=== PATIENT | female | born 1990 | race Caucasian/White ===

== ENCOUNTER 2017-02-11 08:49 | Outpatient (CLI) | payer OTHER ==
--- NOTE | 2017-02-11 10:34 | DIAGNOSTIC IMAGING REPORT ---
PROCEDURE: US COMPLETE PELVIC W/TRANSVAG INDICATION: POLYCYSTIC OVARIAN SYNDROME TECHNIQUE: Transabdominal and endovaginal cadena scale and color Doppler sonographic images of the female pelvis were obtained. COMPARISON: None. FINDINGS: TRANSABDOMINAL SCANS: No pelvic mass or free fluid. TRANSVAGINAL SCANS: Retroverted uterus measures 5.7 x 3.3 x 6.0 cm. Nabothian cysts are present. Normal endometrium measures 7.1 mm. Right ovary measures 3.6 x 2.2 x 3.3 cm (13.3 ml) and left ovary measures 3.1 x 2.3 x 2.5 cm (9.1 ml). Ovaries have a rounded appearance with mildly echogenic stroma and multiple small follicles. There is normal vascular flow to both ovaries. There is no free fluid the cul-de-sac. IMPRESSION: 1. Retroverted uterus 2. Findings suggestive of polycystic ovaries. Correlate clinically.
== END 2017-02-11 23:00 ==
LOC: US SRH 08:49 → LAB SRH 08:49 → US SRH 09:00
DX: E28.2 Polycystic ovarian syndrome (principal)
CPT/HCPCS: 90074; 90648; 90904; 90943; 91023; 93075; 93140

== ENCOUNTER 2017-03-13 18:00 | Emergency (ER) | payer OTHER ==
--- NOTE | 2017-03-13 19:33 | ED CLINICAL REPORT ---
Clinical Report - Physicians/Mid Levels [facility] [address] [place] [address] 03/13/2017 18:00 Patient: MINI TAVARES Time Seen: 18:18. Arrived- By private vehicle. Historian- patient. HISTORY OF PRESENT ILLNESS Chief Complaint: ABDOMINAL PAIN. It is described as "pain" and squeezing" and it is described as radiating to the upper back. Is still present. The patient has had nausea. No vomiting or diarrhea. Similar symptoms previously: Milder. Recent medical care: Not recently seen/assessed. REVIEW OF SYSTEMS Last normal menstrual period was 4 weeks ago. No constipation, black stools, difficulty with urination, fever or chest pain. No chills. Denies current . PAST HISTORY See nurses notes. obesity w/ recent gain +for significant GERD, not responsive to prilosec Mom had hx of hiatal hernia. No history of gallstones, hypertension or diabetes mellitus. Has not had urinary calculi. 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 SOCIAL HISTORY Light tobacco smoker (cigarette)- less than 1/2 a pack per day. Occasional alcohol use. No drug use. ADDITIONAL NOTES The nursing notes have been reviewed. PHYSICAL EXAM Vital Signs: 03/13/2017 18:08 BP: 116/79. HR: 95. RR: 17. O2 saturation: 99%. Temp: 98.3 F. Pain level now: 4/10. Have been reviewed and appear to be correct. Appearance: Alert. Oriented X3. No acute distress. Eyes: Pupils equal, round and reactive to light. Eyes normal inspection. ENT: Ears normal. Neck: Normal inspection. Neck supple. CVS: Normal heart rate and rhythm. Heart sounds normal. Respiratory: No respiratory distress. Breath sounds normal. Abdomen: Soft. Severe tenderness in the upper abdomen, right upper quadrant, epigastric area and left upper quadrant. No guarding or rebound tenderness. Obese. No rebound tenderness, distention, mass present or guarding. The bowel sounds are not abnormal. Skin: Skin warm and dry. Normal skin color. Normal skin turgor. Neuro: Oriented X 3. LABS, X-RAYS, AND EKG Laboratory Tests: Laboratory tests have been ordered, with results reviewed and considered in the medical decision making process. Urine: (PIA: 03/13/2017 18:32) ( [facility] 03/13/2017 19:01) Final results Test Result Flag Units (Reference) URINE NEGATIVE CBC w Diff: (PIA: 03/13/2017 18:40) ( [facility] 03/13/2017 18:54) Final results Test Result Flag Units (Reference) WHITE BLOOD COUNT 7.5 K/uL (4.5-11.5) RED BLOOD COUNT 4.71 M/uL (4.00-5.20) HEMOGLOBIN 11.9 L gm/dL (12.0-16.0) HEMATOCRIT 36.1 % (36.0-46.0) MEAN CELL VOLUME 77 L fL (80-100) MEAN CORPUSCULAR HGB 25 L pg (26-34) MEAN CORPUSCULAR HGB CONC 33 g/dL (31-37) RED CELL DISTRIBUTION WIDTH 15.3 H % (11.6-14.8) PLATELET COUNT 326 K/uL (150-400) NEUTROPHIL % 57.7 % (50-75) LYMPH % 31.4 % (25-40) MONO % 8.7 % (3-14) EOSINOPHIL % 1.4 % (0-4) BASOPHIL % 0.8 % (0-2) CMP: (PIA: 03/13/2017 18:40) ( [facility] 03/13/2017 19:14) Final results Test Result Flag Units (Reference) GLUCOSE 87 mg/dL (70-110) BUN 15 mg/dL (7-18) CREATININE 1.0 mg/dL (0.6-1.3) Estimated GFR >60 mL/min Estimated GFR- >60 mL/min Note: Persistent reduction over 3 months in eGFR<60 mL/min/1.73 m2 defines CKD. Patients with eGFR values>=60 mL/min/1.73 m2 may also have CKD if evidence ofpersistent proteinuria. Additional information may be foundat www.kidney.org. SODIUM 141 mmol/L (136-145) POTASSIUM 3.9 mmol/L (3.5-5.1) CHLORIDE 104 mmol/L (98-107) CARBON DIOXIDE 26 mmol/L (21-32) CALCIUM 9.2 mg/dL (8.5-10.1) TOTAL PROTEIN 8.0 g/dL (6.4-8.2) ALBUMIN 3.5 g/dL (3.3-5.0) BILIRUBIN, TOTAL 0.3 mg/dL (0.0-1.0) ALKALINE PHOSPHATASE 67 U/L (46-116) AST (SGOT) 55 H U/L (15-37) ALT (SGPT) 104 H U/L (12-78) LIPASE 142 U/L (73-393) AMYLASE 40 U/L (25-115) . PROGRESS AND PROCEDURES Course of Care: 18:47 03/13/17. Discussed possible diagnoses and eval to be done tonight-GI cocktail, labs. Followup w/ PCP essential. Pt and mom verbalize understanding. All findings reviewed. Did get relief w/ GI cocktail-but can feel painless reflux happening. Patient is stable. Patient and mother counseled in person regarding the patient's condition, test results, diagnosis and need for follow-up. Disposition: Discharged. Condition: stable. CLINICAL IMPRESSION Gastroesophageal reflux disease with esophagitis. Abnormal serum liver function test. Chronic anemia. INSTRUCTIONS Drink plenty of fluids. Avoid alcohol and NSAIDS. Examples of NSAIDS include aspirin, ibuprofen (Advil) and naproxen (Aleve). Avoid fatty and spicy foods. (You need a liver ultrasound to follow up on your lab values-suspect fatty liver. Iron supplement suggested for anemia: ferrous sulfate 325mg daily My FitnessPal and [employer] are good resources for food journal. Work on restricting the "white" stuff Do not hesitate to return if symptoms are worsening. OTC Nexium if issues w/ getting protonix covered). Warnings: Further evaluation is necessary. GENERAL WARNINGS: Return or contact your physician immediately if your condition worsens or changes unexpectedly, if not improving as expected, or if other problems arise. Prescription Medications: Carafate 1 gm tablets: take 1 orally four times daily (30 minutes before meals and at bedtime) for 10 days. Dispense forty (40). No refills. Protonix 40 mg tablets: take 1 tablet orally every day for 4 weeks. Dispense twenty-eight (28). No refill. Follow-up: Follow up with your doctor in about one week even if well. Understanding of the discharge instructions verbalized by patient and family. (Electronically signed by Amanda Harmon A.R.N.P. 03/13/2017 20:36)
--- NOTE | 2017-03-13 19:33 | ED NURSING NOTES ---
Clinical Report - Nurses [facility] [place] [place] [address] 03/13/2017 18:00 Patient: MINI TAVARES TRIAGE Triage time 18:08 Mar 13 2017. Chief Complaint: ABDOMINAL PAIN and (pt c/o upper abd pain describes as "tension or squeezing" pain is worse after a meal). Alert. No acute distress. SEPSIS SCREEN: Sepsis Screen. Negative (no infection suspected/documented). --18:13 Blanco Damon R.N. 18:08 03/13/17. BP: 116/79. HR: 95. RR: 17. O2 saturation: 99%. Temp: 98.3 F. Pain level now: 01/31. --18:13 Blanco Damon R.N. Weight: 105.6 kg stated. Height/Length: 64 inches Per Patient. BMI: 40. --18:11 Blanco Damon R.N. Medications None. --18:10 Blanco Damon R.N. Allergies Tramadol. --18:10 Blanco Damon R.N. History Arrived by private vehicle. Historian: patient. Accompanied by family. The patient has had abdominal pain. Treatment RESIDENTIAL SUPPORT WORKER: None. ("I was going to take tylenol last night but I couldn't find any"). PAST MEDICAL HX: Immunizations: up-to-date. Last normal menstrual period- 1 months ago. SOCIAL HX: Light tobacco smoker- less than 1/2 a pack per day. Occasional alcohol use; consumes liquor. No drug use. No infectious disease exposure. No known contact with a sick individual. ABUSE ASSESSMENT: No report of abuse. SELF HARM ASSESSMENT: A self harm assessment was performed. The patient answered "no" to the question "Do you have thoughts of harming or killing yourself?". FALL RISK ASSESSMENT: Fall risk assessment completed. No fall risk identified. NUTRITIONAL RISK ASSESSMENT: The nutritional risk assessment revealed no deficiencies. FUNCTIONAL ASSESSMENT: Functional assessment: no impairments noted. LEARNING NEEDS ASSESSMENT: The learning needs assessment revealed no barriers. SKIN INTEGRITY ASSESSMENT: Skin integrity risk assessment completed. No skin integrity risk identified. --18:13 Blanco Damon R.N. PROBLEMS: Chest Wall Pain. Atypical Chest Pain. Near Syncope. Knee Injury. Pharyngitis. Broken bone. --18:11 Blanco Damon R.N. Pelvic Inflammatory Disease [RuleOut]. --18:11 Blanco Damon R.N. 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 --18:11 Blanco Damon R.N. Interventions ID and allergy band on patient. --18:13 Blnaco Damon R.N. PHYSICAL ASSESSMENT Ambulatory to room. Patient gowned. GENERAL / NEURO / PSYCH: Alert. Oriented X 4. Appears in no acute distress. HEENT: Mucous membranes are pink. RESPIRATORY: Respirations not labored. Breath sounds within normal limits. CVS: Capillary refill less than 2 seconds. GI / : Abdomen soft and nontender. Bowel sounds within normal limits. SKIN: Skin is warm and dry. --18:13 Blanco Damon R.N. NURSING PROGRESS NOTES Patient gowned. Reassurance given. Patient identifiers checked. Call light placed in reach. Side rails up x 1. Bed placed in lowest position. Brakes of bed on. Patient ready for evaluation- chart flagged. Patient waiting for evaluation. --18:15 Blanco Damon R.N. 18:41 03/13/2017 GI COCKTAIL WHITE (Simethicone) PO Oral Suspension 30 mL given. Allergies verified and confirmed 5 rights. --18:46 Blanco Damon R.N. 19:33 03/13/2017 GI COCKTAIL WHITE PO Response: no adverse reaction pain is improving. Symptoms have improved the patient feels better. --19:43 Blanco Damon R.N. DISPOSITION / DISCHARGE Condition at departure: improved. No learning barriers present. Discharge instructions provided and reviewed with the patient. Reviewed medication(s) side effects, dosing and course information. Prescription(s) given to the patient. Patient verbalized understanding. Written instructions provided in French. The patient was discharged by the nurse practitioner. She was discharged home and accompanied by family. She left the Emergency Department ambulatory and via private vehicle. Family member driving. --19:42 Blanco Damon R.N. 19:41 03/13/17. BP: 115/71. HR: 87. RR: 17. O2 saturation: 99%. Temp: 98.1 F. Pain level now: 12/03. --19:42 Blanco Damon R.N. Locked/Released at 03/13/2017 19:44 by Blanco Damon R.N.
--- NOTE | 2017-03-13 19:33 | ED NURSING NOTES ---
Clinical Report - Nurses [facility] [place] [address] 03/13/2017 18:00 Patient: MINI TAVARES TRIAGE Triage time 18:08 Mar 13 2017. Chief Complaint: ABDOMINAL PAIN and (pt c/o upper abd pain describes as "tension or squeezing" pain is worse after a meal). Alert. No acute distress. SEPSIS SCREEN: Sepsis Screen. Negative (no infection suspected/documented). --18:13 Blanco Damon R.N. 18:08 03/13/17. BP: 116/79. HR: 95. RR: 17. O2 saturation: 99%. Temp: 98.3 F. Pain level now: 01/31. --18:13 Blanco Damon R.N. Weight: 105.6 kg stated. Height/Length: 64 inches Per Patient. BMI: 40. --18:11 Blanco Damon R.N. Medications None. --18:10 Blanco Damon R.N. Allergies Tramadol. --18:10 Blanco Damon R.N. History Arrived by private vehicle. Historian: patient. Accompanied by family. The patient has had abdominal pain. Treatment RODBUSTER: None. ("I was going to take tylenol last night but I couldn't find any"). PAST MEDICAL HX: Immunizations: up-to-date. Last normal menstrual period- 1 months ago. SOCIAL HX: Light tobacco smoker- less than 1/2 a pack per day. Occasional alcohol use; consumes liquor. No drug use. No infectious disease exposure. No known contact with a sick individual. ABUSE ASSESSMENT: No report of abuse. SELF HARM ASSESSMENT: A self harm assessment was performed. The patient answered "no" to the question "Do you have thoughts of harming or killing yourself?". FALL RISK ASSESSMENT: Fall risk assessment completed. No fall risk identified. NUTRITIONAL RISK ASSESSMENT: The nutritional risk assessment revealed no deficiencies. FUNCTIONAL ASSESSMENT: Functional assessment: no impairments noted. LEARNING NEEDS ASSESSMENT: The learning needs assessment revealed no barriers. SKIN INTEGRITY ASSESSMENT: Skin integrity risk assessment completed. No skin integrity risk identified. --18:13 Blanco Damon R.N. PROBLEMS: Chest Wall Pain. Atypical Chest Pain. Near Syncope. Knee Injury. Pharyngitis. Broken bone. --18:11 Blanco Damon R.N. Pelvic Inflammatory Disease [RuleOut]. --18:11 Blanco Damon R.N. 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 --18:11 Blanco Damon R.N. Interventions ID and allergy band on patient. --18:13 Blanco Damon R.N. PHYSICAL ASSESSMENT Ambulatory to room. Patient gowned. GENERAL / NEURO / PSYCH: Alert. Oriented X 4. Appears in no acute distress. HEENT: Mucous membranes are pink. RESPIRATORY: Respirations not labored. Breath sounds within normal limits. CVS: Capillary refill less than 2 seconds. GI / : Abdomen soft and nontender. Bowel sounds within normal limits. SKIN: Skin is warm and dry. --18:13 Blanco Damon R.N. NURSING PROGRESS NOTES Patient gowned. Reassurance given. Patient identifiers checked. Call light placed in reach. Side rails up x 1. Bed placed in lowest position. Brakes of bed on. Patient ready for evaluation- chart flagged. Patient waiting for evaluation. --18:15 Blanco Damon R.N. 18:41 03/13/2017 GI COCKTAIL WHITE (Simethicone) PO Oral Suspension 30 mL given. Allergies verified and confirmed 5 rights. --18:46 Blanco Damon R.N. 19:33 03/13/2017 GI COCKTAIL WHITE PO Response: no adverse reaction pain is improving. Symptoms have improved the patient feels better. --19:43 Blanco Damon R.N. DISPOSITION / DISCHARGE Condition at departure: improved. No learning barriers present. Discharge instructions provided and reviewed with the patient. Reviewed medication(s) side effects, dosing and course information. Prescription(s) given to the patient. Patient verbalized understanding. Written instructions provided in Slovenian. The patient was discharged by the nurse practitioner. She was discharged home and accompanied by family. She left the Emergency Department ambulatory and via private vehicle. Family member driving. --19:42 Blanco Damon R.N. 19:41 03/13/17. BP: 115/71. HR: 87. RR: 17. O2 saturation: 99%. Temp: 98.1 F. Pain level now: 12/03. --19:42 Blanco Damon R.N. Locked/Released at 03/13/2017 19:44 by Blanco Damon R.N.
--- NOTE | 2017-03-13 19:33 | ED ORDER SUMMARY ---
..... Patient: MINI TAVARES OrderSheet [facility] VisitID: [id number] [place] [address] 26y, F Registration Date/Time: 03/13/2017 ORDER SHEET Weight: 105.6 kg (stated) Allergies: Tramadol GENERAL ORDERS: CBC w Diff Urgent (18:33 03/13/2017 SThom A.R.N.P.) (Ack 18:35 TBergley) (18:40 TBergley) CMP Urgent (18:33 03/13/2017 SThom A.R.N.P.) (Ack 18:35 TBergley) (18:40 TBergley) Amylase Urgent (18:33 03/13/2017 SThom A.R.N.P.) (Ack 18:35 TBergley) (18:40 TBergley) Lipase Urgent (18:33 03/13/2017 SThom A.R.N.P.) (Ack 18:35 TBergley) (18:40 TBergley) Urine Urgent (18:34 03/13/2017 SThom A.R.N.P.) (Ack 18:35 TBergley) (18:46 KPage-Kuchan R.N.) MEDICATION ORDERS: GI Cocktail WHITE PO 30 mL with Lidocaine Viscous Mouth/Throat 15 mL, Maalox Plus Oral 15 mL (NOW) (18:33 03/13/2017 SThom A.R.N.P.) (18:46 KPaadan-Kuchan R.N.) IV FLUIDS: ORDER SHEET NOTES: [Electronically signed by Blanco Damon R.N. (19:44 03/13/2017)] [Electronically signed by Amanda Harmon A.R.N.P. (20:36 03/13/2017)] [Electronically locked/signed by Blanco Damon R.N. (19:44 03/13/2017)]
--- NOTE | 2017-03-13 19:33 | ED ORDER SUMMARY ---
..... Patient: MINI TAVARES OrderSheet [facility] VisitID: [id number] [place] [address] 26y, F Registration Date/Time: 03/13/2017 ORDER SHEET Weight: 105.6 kg (stated) Allergies: Tramadol GENERAL ORDERS: CBC w Diff Urgent (18:33 03/13/2017 SThom A.R.N.P.) (Ack 18:35 TBergley) (18:40 TBergley) CMP Urgent (18:33 03/13/2017 SThom A.R.N.P.) (Ack 18:35 TBergley) (18:40 TBergley) Amylase Urgent (18:33 03/13/2017 SThom A.R.N.P.) (Ack 18:35 TBergley) (18:40 TBergley) Lipase Urgent (18:33 03/13/2017 SThom A.R.N.P.) (Ack 18:35 TBergley) (18:40 TBergley) Urine Urgent (18:34 03/13/2017 SThom A.R.N.P.) (Ack 18:35 TBergley) (18:46 KPage-Kuchan R.N.) MEDICATION ORDERS: GI Cocktail WHITE PO 30 mL with Lidocaine Viscous Mouth/Throat 15 mL, Maalox Plus Oral 15 mL (NOW) (18:33 03/13/2017 SThom A.R.N.P.) (18:46 KPaadan-Kuchan R.N.) IV FLUIDS: ORDER SHEET NOTES: [Electronically signed by Blanco Damon R.N. (19:44 03/13/2017)] [Electronically signed by Amanda Harmon A.R.N.P. (20:36 03/13/2017)] [Electronically locked/signed by Blanco Damon R.N. (19:44 03/13/2017)]
--- NOTE | 2017-03-13 20:37 | ED MAR SUMMARY ---
..... Medication Administration Record [facility] [address] [place] [address] Patient: MINI TAVARES Visit ID: [id number] 26y, F Weight: 105.6 kg Height/Length: 64 in BMI: 40 ALLERGIES: Tramadol Given 18:41 03/13/2017 Blanco Damon RHebertNHebert Medication Administered: GI COCKTAIL WHITE [PO] (SIMETHICONE), Dose: 30 mL Oral Suspension PO. Medication Ordered: GI Cocktail WHITE PO 30 mL with Lidocaine Viscous Mouth/Throat 15 mL, Maalox Plus Oral 15 mL (NOW).
--- NOTE | 2017-03-13 20:37 | ED MAR SUMMARY ---
..... Medication Administration Record [facility] [address] [place] [address] Patient: MINI TAVARES Visit ID: [id number] 26y, F Weight: 105.6 kg Height/Length: 64 in BMI: 40 ALLERGIES: Tramadol Given 18:41 03/13/2017 Blanco Damon RHebertNHebert Medication Administered: GI COCKTAIL WHITE [PO] (SIMETHICONE), Dose: 30 mL Oral Suspension PO. Medication Ordered: GI Cocktail WHITE PO 30 mL with Lidocaine Viscous Mouth/Throat 15 mL, Maalox Plus Oral 15 mL (NOW).
--- NOTE | 2017-03-13 20:37 | ED MED RECONCILIATION SUMMARY ---
Patient: MINI TAVARES Medication Reconciliation Report [facility] VisitID: [id number] [address] [place] [address] 26y, F Registration Date/Time: 03/13/2017 Weight: 105.6 kg Height/Length: 64 in. BMI: 40.0 ALLERGIES: Tramadol The patient's Home Medications are listed below: NONE. The source(s) of the original Home Medication information: Not obtained. The following Medications were given to the patient in the Emergency Department: GI COCKTAIL WHITE [PO] PO 30 mL, administered: 03/13/2017 6:41:00 PM The following Medications were prescribed to the patient: Carafate 1 gm tablets: take 1 orally four times daily (30 minutes before meals and at bedtime) for 10 days. Dispense forty (40). No refills. -- Amanda Harmon A.R.N.P. Protonix 40 mg tablets: take 1 tablet orally every day for 4 weeks. Dispense twenty-eight (28). No refill. -- Amanda Harmon A.R.N.P.
--- NOTE | 2017-03-13 20:37 | ED DISCHARGE INSTRUCTIONS ---
Patient: MINI TAVARES General Instructions [facility] VisitID: [id number] [place] [address] 26y, F Registration Date/Time: 03/13/2017 Gastroesophageal reflux disease with esophagitis. Abnormal serum liver function test. Chronic anemia. INSTRUCTIONS Drink plenty of fluids. Avoid alcohol and NSAIDS. Examples of NSAIDS include aspirin, ibuprofen (Advil) and naproxen (Aleve). Avoid fatty and spicy foods. (You need a liver ultrasound to follow up on your lab values-suspect fatty liver. Iron supplement suggested for anemia: ferrous sulfate 325mg daily [employer] and [employer] are good resources for food journal. Work on restricting the "white" stuff Do not hesitate to return if symptoms are worsening. OTC Nexium if issues w/ getting protonix covered). Warnings: Further evaluation is necessary. GENERAL WARNINGS: Return or contact your physician immediately if your condition worsens or changes unexpectedly, if not improving as expected, or if other problems arise. Prescription Medications: Carafate 1 gm tablets: take 1 orally four times daily (30 minutes before meals and at bedtime) for 10 days. Dispense forty (40). No refills. Protonix 40 mg tablets: take 1 tablet orally every day for 4 weeks. Dispense twenty-eight (28). No refill. Follow-up: Follow up with your doctor in about one week even if well. Understanding of the discharge instructions verbalized by patient and family. ADDITIONAL INFORMATION GERD (Adult) The esophagus is a tube that carries food from the mouth to the stomach. A valve at the lower end of the esophagus prevents stomach acid from flowing upward. If this valve does not work properly, acid from the stomach enters the esophagus. If this occurs over and over, the acid will injure the lining of the esophagus. This condition is called GERD (gastroesophageal reflux disease) or acid reflux. When stomach acid flows upward into the esophagus, it causes burning, pressure or sharp pain in the upper abdomen or mid to lower chest. The pain can spread to the neck, back, or shoulder, similar to heart pain (angina). There may be belching, an acid taste in the back of the throat, chronic cough, or sore throat or hoarseness. GERD symptoms often occur during the day after a big meal, but it can also occur at night when lying down. Smoking,as well as drinking alcohol, increases the risk of GERD. GERD is a chronic condition. Once it begins, it is often lifelong. Treatment includes changes in eating habits and the use of acid destin medications to decrease the amount of acid in the stomach. Symptoms often improve with treatment, but if treatment is stopped, the symptoms usually return after a few months. So most persons with GERD will need to continue treatment. Home Care: Take the prescribed acid destin medication for the full course of treatment even if you begin to feel better sooner. This medication can take up to several days to fully control your symptoms. If you cant afford the prescribed medication, you can try [id number] acid blockers, such as Pepcid AC, Tagamet, Zantac, or Aciphex. If these do not relieve your symptoms, a stronger acid-destin can be tried, such as Prilosec OTC. You can use antacids, such as Tums, Rolaids, Mylanta, or Maalox, for pain. This will be useful the first few days after starting acid blockers when the blockers havent started working yet. Follow the directions on the label. Liquid antacids may work better than tablets. Note that antacids can interfere with absorption of certain medications. Specifically, do not take Tagamet (cimetidine), Zantac (ranitidine), or Carafate (sucralfate) within 1 hour of taking an antacid. Talk with your pharmacist if you have any questions. Limit or avoid fatty, fried, and spicy foods, as well as coffee, chocolate, mint, and foods with high acid content such as tomatoes and citrus fruit and juices (orange, grapefruit, lemon). Avoid alcohol and smoking. Dont eat large meals, especially at night. Frequent, smaller meals are best. Do not lie down right after eating. And dont eat anything 3 hours before going to bed. If you are overweight, losing weight will reduce symptoms. Women should not wear corsets or girdles because this increases pressure on the stomach and worsens reflux. If your symptoms occur during sleep, use a foam wedge to elevate your upper body (not just your head.) Or, place 4" blocks under the head of your bed. Follow Up with your doctor or as advised by our staff. Further testing may be needed. If you do not begin to improve over the next 4 days, contact your doctor. If you had an x-ray, CT scan, or ECG (electrocardiogram), it will be reviewed by a specialist. Youll be notified of any new findings that affect your care. Get Prompt Medical Attention if any of the following occur: Stomach pain gets worse or moves to the lower right abdomen (appendix area) Chest pain appears or gets worse, or spreads to the back, neck, shoulder, or arm Frequent vomiting (cant keep down liquids) Blood in the stool or vomit (red or black in color) Feeling weak or dizzy, fainting, or trouble breathing Fever of 100.4F (38C) or higher, or as directed by your healthcare provider Anemia [Type Not Specified, Adult] Red blood cells carry oxygen to the tissues of the body. Anemia is a condition where the size or number of red blood cells in the body is reduced. Iron is needed to make red blood cells. The most common cause of anemia is iron deficiency. This may be due to: i) Blood loss (heavy menstrual periods or bleeding from the stomach or intestines); or, ii) Not eating enough iron-containing foods. Other causes of anemia include certain vitamin deficiencies, chronic kidney disease or certain other chronic illnesses. Anemia causes a feeling of being tired and run down. When anemia becomes severe, the skin becomes pale and there is shortness of breath with exertion. Headaches, dizziness, leg cramps with exertion, drowsiness and fatigue are other common symptoms. Home Care: If you are having symptoms of anemia listed above: -- Do not overexert yourself. -- Talk to your doctor before flying on an airplane or traveling to high altitudes. Follow Up with your doctor as advised by our staff. Additional blood testing may be required to determine the exact cause of your anemia. If testing was done on this visit, it may take several days to get all of the results. You may call this facility or follow up with your own doctor to get the results. Get Prompt Medical Attention if any of the following occur: -- Shortness of breath or chest pain -- Worsening of dizziness, fainting -- Vomiting blood or passing red or black-colored stool You have been given the following additional information: GERD (Adult) Anemia, Type Not Specified (Adult) (Electronically signed by Amanda Harmon A.R.N.P. 03/13/2017 20:36)
--- NOTE | 2017-03-13 20:37 | ED MED RECONCILIATION SUMMARY ---
Patient: MINI TAVARES Medication Reconciliation Report Merged With [facility] VisitID: [id number] [address] [place] [address] 26y, F Registration Date/Time: 03/13/2017 Weight: 105.6 kg Height/Length: 64 in. BMI: 40.0 ALLERGIES: Tramadol The patient's Home Medications are listed below: NONE. The source(s) of the original Home Medication information: Not obtained. The following Medications were given to the patient in the Emergency Department: GI COCKTAIL WHITE [PO] PO 30 mL, administered: 03/13/2017 6:41:00 PM The following Medications were prescribed to the patient: Carafate 1 gm tablets: take 1 orally four times daily (30 minutes before meals and at bedtime) for 10 days. Dispense forty (40). No refills. -- Amanda Harmon A.R.N.P. Protonix 40 mg tablets: take 1 tablet orally every day for 4 weeks. Dispense twenty-eight (28). No refill. -- Amanda Harmon A.R.N.P.
== END 2017-03-13 19:41 | disposition home or self-care (01) ==
LOC: ED SRH 18:00
DX: K21.0 Gastro-esophageal reflux disease with esophagitis (principal); R94.5 Abnormal results of liver function studies; D64.89 Other specified anemias; Z72.0 Tobacco use
CPT/HCPCS: 90074; 90100; 92235; 92530; 93070; 95059

== ENCOUNTER 2017-03-16 08:53 | Outpatient (CLI) | payer OTHER ==
--- NOTE | 2017-03-16 13:06 | DIAGNOSTIC IMAGING REPORT ---
PROCEDURE: US ABDOMEN ULTRASOUND-LIMITED INDICATION: RUQ PAIN; ELEVATED LFT'S; POSS HIATAL HERNIA TECHNIQUE: Marrero scale and color Doppler sonographic images were obtained of the right upper quadrant. COMPARISON: None. FINDINGS: The liver is mildly enlarged measuring about 20 cm in length and demonstrates moderate diffuse hepatic hyperechogenicity. Smooth margin. No mass or biliary dilatation. The gallbladder is normal without stones or sludge. Normal wall thickness at 1.7 mm No pericholecystic fluid or Lopez's sign. The common duct is normal at 3.3 mm. The visible portion of the pancreas, inferior vena cava, abdominal aorta, and portal vein appear normal and there is appropriate direction of flow in the portal vein. The right kidney is normal measuring 10.1 cm. No free fluid in the right upper quadrant. In the area of patient discomfort, no suspicious mass or fluid collection. The epigastric abdominal wall appears intact at rest. IMPRESSION: 1. Mild hepatomegaly and hepatic steatosis. 2. Normal gallbladder without stones. 3. The area of epigastric abdominal wall discomfort appears grossly intact at rest. Valsalva maneuver was not performed.
== END 2017-03-16 23:00 ==
LOC: US SRH 08:53
DX: R10.11 Right upper quadrant pain (principal); R79.89 Other specified abnormal findings of blood chemistry; K76.0 Fatty (change of) liver, not elsewhere classified